=== PATIENT | male | born 1950 | race Two or more races ===

== ENCOUNTER 2019-01-23 07:13 | Day surgery (SDC) | payer OTHER | END 2019-01-23 13:30 | disposition home or self-care (01) | LOC: AMB-ENDOS 07:13 | DX: D12.0 Benign neoplasm of cecum (principal); Z12.11 Encounter for screening for malignant neoplasm of colon ==

== ENCOUNTER 2023-05-11 19:20 | Emergency (ER) | payer OTHER ==
[~2023-05-11] VITALS: Ht 182.9 cm; Wt 101.2 kg
[2023-05-11] MEDS ORDERED: CANDESARTAN-HC1 EAC1 PO (19:36)
[2023-05-11] MEDS ORDERED: AMLODIPINE BESYL5 MG PO (19:37)
[2023-05-11] MEDS ORDERED: DOXAZOSIN MESYLA2 MG PO (19:37)
== END 2023-05-11 20:17 | disposition home or self-care (01) ==
LOC: ER 19:20
DX: D69.6 Thrombocytopenia, unspecified (principal)

== ENCOUNTER 2024-01-10 06:51 | Day surgery (SDC) | payer OTHER ==
[~2024-01-10 06:51] MED LIST: AMLODIPINE BESYL5 MG PO; CANDESARTAN-HC1 EAC1 PO; DOXAZOSIN MESYLA2 MG PO
[2024-01-10] MEDS ORDERED: ONDANSETRON HCL 2 MG/ML VIAL IV ONE (11:45)
[2024-01-10] MEDS ORDERED: DIPHENHYDRAMINE HCL 50 MG/ML VIAL 1ML IV ONE (11:45)
[2024-01-10] MEDS ORDERED: fentaNYL CITRATE 50 MCG/ML AMPUL IV PUSH ONE (11:45)
[2024-01-10] MEDS ORDERED: MIDAZOLAM HCL 2 MG/2 ML VIAL IV ONE (11:45)
== END 2024-01-10 13:35 | disposition home or self-care (01) ==
LOC: AMB-ENDOS 06:51
PROVIDERS: ATTEND Colon & Rectal Surgery
DX: D12.4 Benign neoplasm of descending colon (principal); K63.5 Polyp of colon; K57.30 Diverticulosis of large intestine without perforation or abscess without bleeding; D12.5 Benign neoplasm of sigmoid colon; K62.1 Rectal polyp